=== PATIENT | male | born 1955 | race Caucasian/White ===

== ENCOUNTER 2017-09-01 17:03 | Inpatient (IN) | payer MEDICAID ==
[~2017-09-01] VITALS: Ht 170.2 cm; Wt 76.2 kg
--- NOTE | 2017-09-01 17:05 | NUR ---
pt ambulatory to er bed 10. c/o being dizzy and nauseated since yesterday. pt is diabetic. pt also c/o lt side neck pain w/ numbness to lue. denies weakness. gowned and placed on monitor. vss. awaiting md jamil.
--- NOTE | 2017-09-01 17:20 | NUR ---
norris germain at bedside for eval.
[2017-09-01] MEDS ORDERED: IV NS 0.9% 1,000 ML BAG IV ONE (17:30)
[2017-09-01] MEDS ORDERED: ONDANSETRON HCL/PF 4 MG/2 ML VIAL IVP ONE (17:30)
--- NOTE | 2017-09-01 17:46 | NUR ---
Note [facility] in EDM - 09/01/17 at 1816 by NÉSTOR pt ambulatory to er bed 10. c/o being dizzy and nauseated since yesterday. pt is diabetic. pt also c/o lt side neck pain w/ numbness to lue. denies weakness. gowned and placed on monitor. vss. awaiting md jamil.
[2017-09-01 17:47] LABS: BASOPHILS # (AUTO) 0.3 /CMM (0.0-0.2); EOSINOPHILS # (AUTO) 0.1 /CMM (0.0-0.7); EOSINOPHILS % (AUTO) 1.1 % (0.0-6.0); HEMATOCRIT 46 % (39-51); LYMPHOCYTES # (AUTO) 2.6 /CMM (0.8-4.8); MEAN CORPUSCULAR HEMOGLOBIN 34 PG (26.0-33.0); MEAN CORPUSCULAR HGB CONC 35 g/dl (31.0-36.0); MEAN CORPUSCULAR VOLUME 99 fL (80-96); MONOCYTES # (AUTO) 0.7 /CMM (0.1-1.30); MONOCYTES % (AUTO) 5.2 % (2.0-12.0); NEUTROPHILS # (AUTO) 8.9 /CMM (1.8-8.9); NEUTROPHILS % (AUTO) 70.7 % (43.0-81.0); PLATELET COUNT (AUTO) 255 /CMM (150-450); RDW COEFFICIENT OF VARIATION 12.6 (11.5-15.0); RED BLOOD CELL COUNT(AUTO) 4.65 MIL/uL (4.5-6.0); WHITE BLOOD COUNT (AUTO) 12.6 K/uL (4.3-11.0)
--- NOTE | 2017-09-01 17:55 | NUR ---
CALLED RN SUPP FOR BED
--- NOTE | 2017-09-01 18:00 | NUR ---
pt to radiology for head ct scan via [facility].
[2017-09-01 18:08] LABS: INR 0.94 (0.87-1.13); PROTHROMBIN TIME 9.8 SECS (9.5-12.7)
[2017-09-01] MEDS ORDERED: ONDANSETRON HCL/PF 4 MG/2 ML VIAL ONE (18:17)
[2017-09-01 18:36] LABS: ALBUMIN 3.7 g/dL (3.4-5.0); BILIRUBIN,DIRECT 0.1 mg/dL (0.0-0.2); BILIRUBIN,TOTAL 0.3 mg/dL (0.2-1.0); CALCIUM, SERUM 9.6 mg/dL (8.5-10.1); CREATININE 0.8 mg/dL (0.6-1.3); POTASSIUM 4.2 mmol/L (3.5-5.1)
[2017-09-01] MEDS ORDERED: HYDR12.5 PO (18:36)
[2017-09-01] MEDS ORDERED: METF10002 PO (18:36)
[2017-09-01] MEDS ORDERED: IBUPROFEN 600 MG TABLET PO ONE ×2 (18:39→19:00)
[2017-09-01] MEDS ORDERED: HYDROCHLOROTHIAZIDE 25 MG TABLET ONE (18:39)
[2017-09-01] MEDS ORDERED: GLIM4TAB2 PO (18:41)
[2017-09-01] MEDS ORDERED: NPH,100V SQ (18:41)
[2017-09-01] MEDS ORDERED: HYDROCHLOROTHIAZIDE 25 MG TABLET PO ONE (19:00)
[2017-09-01 20:00] VITALS: BP 140/73
[2017-09-01] MEDS ORDERED: LORAZEPAM INJ 2 MG/ML VIAL IV ONE (20:00)
[2017-09-01 20:04] LABS: APPEARANCE,URINE Clear (CLEAR); BILIRUBIN,URINE Negative (NEGATIVE); BLOOD, URINE Trace-lysed Ery/uL (NEGATIVE); COLOR,URINE Yellow (YELLOW); KETONES,URINE Negative (NEGATIVE); LEUKOCYTE ESTERASE ,URINE Negative (NEGATIVE); NITRITE, URINE Negative (NEGATIVE); PH,URINE 6.5 (5.0-8.0); PROTEIN,URINE Negative (NEGATIVE); UGLUCOSE 250 MG/DL mg/dL (NEGATIVE); UROBILINOGEN,URINE 0.2 EU/dL (0.2)
[2017-09-01] MEDS ORDERED: LORAZEPAM INJ 2 MG/ML VIAL ONE (20:10)
--- NOTE | 2017-09-01 20:28 | NUR ---
report given to garfield. pt awaiting transfer to floor.
[2017-09-01 20:30] LABS: BACTERIA,URINE Rare /HPF (None Seen); WBC,URINE 0-2 /HPF (0-3)
[2017-09-01 20:31] LABS: RBC,URINE 0-2 /HPF (0-2); SQUAMOUS EPITHELIAL CELL,UR Rare /HPF (None Seen)
[2017-09-01] MEDS ORDERED: LORAZEPAM INJ 2 MG/ML VIAL IVP PRN (21:30)
[2017-09-01] MEDS ORDERED: ACETAMINOPHEN 650 MG/SUPP.RECT RC PRN (21:30)
[2017-09-01] MEDS ORDERED: DEXTROSE 50%-WATER 50 ML DISP.SYRIN IV PRN (21:30)
[2017-09-01 22:00] VITALS: BP 155/72
[2017-09-01] MEDS ORDERED: SIMVASTATIN 20 MG TABLET PO SCH (22:00)
[2017-09-01] MEDS: BLOOD SUGAR DIAGNOSTIC 1 EACH STRIP IN SCH (22:50)
[2017-09-01] MEDS ORDERED: SIMVASTATIN 20 MG TABLET ONE (22:56)
[2017-09-02] VITALS: BP 160/69
[2017-09-02] MEDS: IV NS 0.9% 1,000 ML IV PRN ×2 (00:10→23:24)
[2017-09-02 01:30] VITALS: BP 133/67
[2017-09-02 04:00] VITALS: BP 145/77
--- NOTE | 2017-09-02 04:55 | NUR ---
RN NOTES 20:45 Patient arrived in the unit in no apparent distress. Patient is accompanied by family. Patient is alert and oriented x4, verbally responsive in Uzbek and able to make needs known. Patient's sister served as the jumpbasting machine operator. Skin is warm and dry to touch, no SOB noted. Admission interview done, patient is cooperative. Informed Camryn Glover of the admission and ordered diet for the patient, order noted and carried out. Accucheck done, no s/s of hypo/hyperglycemia. Skin assessment done. no skin breakdown noted. No edema noted. Seen and examined by Dr Cowan no new orders given. All needs attended.due meds given as ordered. Will continue to monitor.
[2017-09-02] MEDS: BLOOD SUGAR DIAGNOSTIC 1 EACH STRIP IN SCH ×4 (06:32→22:17)
[2017-09-02 06:50] VITALS: BP 146/75
[2017-09-02 07:28] LABS: BASOPHILS % (AUTO) 0.3 % (0.0-2.0); EOSINOPHILS # (AUTO) 0.2 /CMM (0.0-0.7); EOSINOPHILS % (AUTO) 2.1 % (0.0-6.0); HEMATOCRIT 43 % (39-51); LYMPHOCYTES # (AUTO) 2.8 /CMM (0.8-4.8); LYMPHOCYTES % (AUTO) 32.3 % (20.0-44.0); MEAN CORPUSCULAR HEMOGLOBIN 35 PG (26.0-33.0); MEAN CORPUSCULAR HGB CONC 35 g/dl (31.0-36.0); MEAN CORPUSCULAR VOLUME 100 fL (80-96); MONOCYTES # (AUTO) 0.5 /CMM (0.1-1.30); MONOCYTES % (AUTO) 6.1 % (2.0-12.0); NEUTROPHILS # (AUTO) 5.2 /CMM (1.8-8.9); NEUTROPHILS % (AUTO) 59.2 % (43.0-81.0); PLATELET COUNT (AUTO) 242 /CMM (150-450); RDW COEFFICIENT OF VARIATION 13.2 (11.5-15.0); WHITE BLOOD COUNT (AUTO) 8.8 K/uL (4.3-11.0)
[2017-09-02 07:49] LABS: ALANINE AMINOTRANSFERASE 27 U/L (12-78); ALBUMIN 3.3 g/dL (3.4-5.0); ALCOHOL, BLOOD < 3 mg/dL (0-0); ALKALINE PHOSPHATASE 99 U/L (46-116); ASPARTATE AMINOTRANSFERASE 18 U/L (15-37); BILIRUBIN,DIRECT 0.1 mg/dL (0.0-0.2); BILIRUBIN,TOTAL 0.6 mg/dL (0.2-1.0); CALCIUM, SERUM 9.1 mg/dL (8.5-10.1); CARBON DIOXIDE 29 mmol/L (21-32); CHLORIDE 105 mmol/L (98-107); CREATININE 0.8 mg/dL (0.6-1.3); GLUCOSE 173 mg/dL (74-106); MAGNESIUM 1.9 mg/dL (1.8-2.4); PHOSPHORUS 2.9 mg/dL (2.5-4.9); POTASSIUM 3.8 mmol/L (3.5-5.1); SODIUM SERUM 140 mmol/L (136-145); TOTAL PROTEIN, SERUM 6.7 g/dL (6.4-8.2); UREA NITROGEN, BLOOD 11 mg/dL (7-18)
[2017-09-02 07:51] LABS: INR 0.97 (0.87-1.13); PROTHROMBIN TIME 10.1 SECS (9.5-12.7)
[2017-09-02 07:54] LABS: CHOLESTEROL 186 mg/dL (<200); HDL CHOLESTEROL 36 mg/dL (40-60); LDL 127 mg/dL (0-99); TRIGLYCERIDES 120 mg/dL (30-150)
--- NOTE | 2017-09-02 08:00 | NUR ---
CARE TECH NOTES PATIENT IN BED RESTING NO SOB OR ACUTE DISTRESS NOTED. PERIPHERAL IV INTACT PATENT. AT BEDSIDE. PATIENT NIGERIEN SPEAKING. BED IN LOW LOCKED POSITION. CALL LIGHT WITHIN REACH WILL CONTINUE TO MONITOR.
[2017-09-02] MEDS ORDERED: ASPIRIN 81 MG TAB.CHEW PO SCH (09:00)
[2017-09-02] MEDS ORDERED: INSULIN NPH, HUMAN ISOPHANE 100 UNIT/ML VIAL SQ SCH (09:00)
[2017-09-02] MEDS: METFORMIN 500 MG TABLET PO SCH ×2 (09:59→17:12)
[2017-09-02] MEDS: GLIMEPIRIDE 4 MG TABLET PO SCH ×2 (10:00→17:13)
[2017-09-02] MEDS: PANTOPRAZOLE 40 MG TABLET.DR PO SCH (10:00)
[2017-09-02] MEDS: VALSARTAN 80 MG TABLET PO SCH (10:00)
[2017-09-02] MEDS: HYDROCHLOROTHIAZIDE 25 MG TABLET PO SCH (10:03)
[2017-09-02] MEDS: INSULIN REGULAR, HUMAN 100 UNIT/ML 3 ML VIAL SQ PRN ×2 (12:23→22:21)
--- NOTE | 2017-09-02 14:00 | NUR ---
SQUARE SHEAR OPERATOR NOTES PATIENT SEEN AND EVALUATED BY DR. CISSE ORDERS NOR MRI WITH AND WITHOUT CONTRAST AND CT OF THE SPINE, ORDERS NOTED AND CARRIED OUT.
[2017-09-02 16:00] VITALS: BP 130/70
[2017-09-02] MEDS ORDERED: GADOVERSETAMIDE 5 MMOL/10 ML VIAL IJ ONE (18:25)
[2017-09-02] MEDS ORDERED: GADOVERSETAMIDE 2.5 MMOL/5 ML VIAL IJ ONE (18:25)
--- NOTE | 2017-09-02 18:36 | NUR ---
TANK REFINISHER NOTES PATIENT IN BED RESTING NO SOB OR ACUTE DISTRESS NOTED. PERIPHERAL IV INTACT PATENT ON RIGHT HAND. PATIENT EDUCATIONS PROVIDED ON CVA, PREVENTATIVE MEASURES, SIGNS AND SYMPTOMS, VERBALIZED UNDERSTANDING FAMILY AND PATIENT. ALL DUE MEDICATIONS ADMINISTERED. ALL NEEDS MET. WILL ENDORSE TO PM SHIFT LEEANNA.
--- NOTE | 2017-09-02 19:35 | NUR ---
TELE/ACCOUNT DIRECTOR; RECEIVED PT IN BED AWAKE, ALERT AND ORIENTED X 4. DENIES ANY PAIN. NO DIZZINESS NOR BLURRY VISION LT EYE. PT SAID HE CAN SEE FINE. SPEECH IS CLEAR. BREATHING NON LABORED. PT ABLE TO MOVE ALL EXTREMITIES. ON TELEMETRY. BED ON LOWER POSITION AND LOCKED FOR SAFETY. SIDE RAILS ARE UP FOR SAFETY. PT'S AT THE BEDSIDE VISITED. PT WAS SAYING HE IS MUCH BETTER. IVF ON PROGRESS. WILL CONTINUE TO MONITOR. CALL LIGHT WITHIN REACH.
[2017-09-02 20:00] VITALS: BP 138/70
--- NOTE | 2017-09-02 21:30 | NUR ---
TELE/GUN NUMBERER; DR. Joann KUMAR CALLED AND HE RELAYED THE RESULT OF THE MRI OF THE BRAIN. I INFORMED THE CHARGE NURSE OF THE MRI RESULT . SHE SAID TO CALL DR. HARESH GRECO.
[2017-09-02] MEDS: ATORVASTATIN 40 MG TABLET PO SCH (21:34)
--- NOTE | 2017-09-02 22:00 | NUR ---
TELE/CUSTOMER ENGINEERING SPECIALIST; BS 173 COVERED WITH REGULAR INSULIN 3 UNITS SQ. WILL CONTINUE TO MONITOR.
--- NOTE | 2017-09-02 22:25 | NUR ---
TELE/APPLICATIONS PROGRAMMER; I PLACED A CALL TO DR. HARESH LEE I NOTIFIED HER THAT DR. Joann KUMAR CALLED FOR THE RESULT OF THE MRI OF THE BRAIN. I READ TO DR. HARESH GRANT THE MRI OF THE BRAIN RESULTS. NO NEW ODER.
[2017-09-03] VITALS: BP 129/65
[2017-09-03 04:00] VITALS: BP 136/76
[2017-09-03] MEDS: BLOOD SUGAR DIAGNOSTIC 1 EACH STRIP IN SCH ×4 (05:37→22:15)
--- NOTE | 2017-09-03 06:00 | NUR ---
TELE/COMMERCIAL PHOTOGRAPHER; BS 109 NO COVERAGE.
--- NOTE | 2017-09-03 06:30 | NUR ---
TELE/CAR HOP; PT SLEPT AT GOOD INTERVALS. PT ON SR 65. IVF ON PROGRESS. MADE NO COMPLAINT. WILL CONTINUE TO MONITOR. CALL LIGHT WITHIN REACH. WILL ENDORSE TO THE DAY SHIFT NURSE.
--- NOTE | 2017-09-03 06:45 | NUR ---
PLACED ON DVT PUMP TO BOTH LOWER LEGS.
[2017-09-03 07:00] VITALS: BP 140/80
--- NOTE | 2017-09-03 07:12 | NUR ---
RN OPEN NOTES RECEIVED REPORT FROM RESIDENTIAL DIRECTOR NURSE. PATIENT IS IN BED. PATIENT IS ALERT AND ORIENTED TO NAME, PLACE AND TIME. NO SIGNS AND SYMPTOMS OF DISTRESS. WILL CONTINUE TO MONITOR AND ASSESS PATIENT THROUGH OUT MY SHIFT
[2017-09-03 08:00] VITALS: BP 140/80
--- NOTE | 2017-09-03 08:30 | NUR ---
DR MACLOLM AT BEDSIDE
[2017-09-03] MEDS: METFORMIN 500 MG TABLET PO SCH ×2 (08:48→17:20)
[2017-09-03] MEDS: VALSARTAN 80 MG TABLET PO SCH (08:48)
[2017-09-03] MEDS: PANTOPRAZOLE 40 MG TABLET.DR PO SCH (08:51)
[2017-09-03] MEDS: HYDROCHLOROTHIAZIDE 25 MG TABLET PO SCH (08:51)
[2017-09-03] MEDS: GLIMEPIRIDE 4 MG TABLET PO SCH ×2 (08:51→17:20)
[2017-09-03] MEDS: ASPIRIN EC 325 MG TABLET.DR PO SCH (08:59)
[2017-09-03] MEDS: ACETAMINOPHEN 325 MG TABLET PO PRN ×2 (09:42→17:23)
[2017-09-03 11:05] LABS: BASOPHILS % (AUTO) 0.1 % (0.0-2.0); EOSINOPHILS # (AUTO) 0.1 /CMM (0.0-0.7); EOSINOPHILS % (AUTO) 1.3 % (0.0-6.0); HEMATOCRIT 44 % (39-51); HEMOGLOBIN 15.2 g/dL (13.5-17.5); LYMPHOCYTES % (AUTO) 27.4 % (20.0-44.0); MEAN CORPUSCULAR HEMOGLOBIN 35 PG (26.0-33.0); MEAN CORPUSCULAR HGB CONC 35 g/dl (31.0-36.0); MEAN CORPUSCULAR VOLUME 100 fL (80-96); MONOCYTES # (AUTO) 0.6 /CMM (0.1-1.30); MONOCYTES % (AUTO) 5.6 % (2.0-12.0); NEUTROPHILS # (AUTO) 7.1 /CMM (1.8-8.9); NEUTROPHILS % (AUTO) 65.6 % (43.0-81.0); PLATELET COUNT (AUTO) 238 /CMM (150-450); RDW COEFFICIENT OF VARIATION 13.7 (11.5-15.0); RED BLOOD CELL COUNT(AUTO) 4.36 MIL/uL (4.5-6.0); WHITE BLOOD COUNT (AUTO) 10.8 K/uL (4.3-11.0)
[2017-09-03] MEDS: LEVETIRACETAM (250 MG) 250 MG TABLET PO SCH ×2 (11:10→21:16)
[2017-09-03 11:14] LABS: ALBUMIN 3.1 g/dL (3.4-5.0); BILIRUBIN,TOTAL 0.5 mg/dL (0.2-1.0); CALCIUM, SERUM 9.2 mg/dL (8.5-10.1); POTASSIUM 3.8 mmol/L (3.5-5.1); TOTAL PROTEIN, SERUM 6.5 g/dL (6.4-8.2)
[2017-09-03] MEDS: INSULIN REGULAR, HUMAN 100 UNIT/ML 3 ML VIAL SQ PRN ×2 (11:52→17:27)
[2017-09-03] MEDS: IV NS 0.9% 1,000 ML IV PRN (13:59)
[2017-09-03 16:00] VITALS: BP 116/70
--- NOTE | 2017-09-03 16:45 | NUR ---
US TECH AT BEDSIDE FOR CAROTID DUPLEX IMAGE
--- NOTE | 2017-09-03 18:39 | NUR ---
RN CLOSING NOTES PATIENT IS ALERT AND ORIENTED TO NAME, PLACE AND TIME. NO SIGNS AND SYMPTOMS OF DISTRESS. IV SITE IS INTACT AND PATENT. BED IN LOW POSITION, LOCKED AND TWO SIDE RAILS ARE UP. CALL LIGHT WITHIN REACH FOR SAFETY. ALL NURSING CARE ANTICIPATED AND ATTENDED FOR. PATIENT REMAINED DRY AND CLEAN. WILL ENDORSE TO DOOR TO DOOR SALESPERSON NURSE
--- NOTE | 2017-09-03 19:30 | NUR ---
MS/FUR POLISHER; RECEIVED PT IN BED AWAKE, ALERT AND ORIENTED X 4. PT WITH VISITORS. BREATHING NON LABORED. DENIES ANY PAIN. SPEECH IS CLEAR. DENIES DIZZINESS NO HEADACHE , NO BLURRY VISION ON THE LEFT EYE, NO PAIN ON THE LT ARM AND NO NUMBNESS. PT ABLE TO MOVE ALL EXTREMITIES. BED ON LOWER POSITION AND LOCKED FOR SAFETY. SIDE RAILS UPPER PART OF BED X2 ARE UP FOR SAFETY. PT REMINDED TO CALL FOR HELP. CONTINUE TO MONITOR. CALL LIGHT WITHIN REACH.
[2017-09-03 20:00] VITALS: BP 137/77
--- NOTE | 2017-09-03 20:00 | NUR ---
MS/ARCHIVES SPECIALIST; NEW IV LINE STARTED ON LFA # 20 ANGIO CATH. PREVIOUS ON LA IS PAINFUL AND BIT BLEEDING. IVF WILL RESUMED.
--- NOTE | 2017-09-03 20:00 | NUR ---
MS/FIRE CAPTAIN MARINE; IV SITE ON THE LT ARM PT SAID IT IS PAINFUL . IVF OFF. NEW IV SITE STARTED ON LFA # 20 ANGIO CATH AND IVF RESUMED.
[2017-09-03] MEDS ORDERED: LEVETIRACETAM (250 MG) 250 MG TABLET PO SCH (21:00)
[2017-09-03] MEDS: ATORVASTATIN 40 MG TABLET PO SCH (21:16)
[2017-09-03] MEDS ORDERED: INSULIN NPH, HUMAN ISOPHANE 100 UNIT/ML VIAL SQ SCH (22:00)
--- NOTE | 2017-09-03 22:00 | NUR ---
MS/SALES PRODUCER; BS 113 NO SLIDING SCALE GIVEN. PT ON NOVOLIN 15 UNITS SQ ORDERED AND CHARGE NURSE JESUS CHENG MAY GIVE AND ALSO GIVE PT SNACKS. WILL CONTINUE TO MONITOR. IVF ON PROGRESS SNACKS GIVEN.
--- NOTE | 2017-09-04 | NUR ---
MS/POWDER AND PRIMER CANNING LEADER; SLEEPING AT THIS TIME. BREATHING NON LABORED.
--- NOTE | 2017-09-04 03:00 | NUR ---
MS/HEADING REPAIRER; RE CHECKED BS 206. MADE NO C/O. ASSISTED TO THE BATHROOM VOIDED ONLY. BACK TO BED WITH ASSIST. IN BED COMFORTABLY. IVF RESUMED. CHARGE NURSE MADE AWARE OF THE BS.
[2017-09-04] MEDS: IV NS 0.9% 1,000 ML IV PRN (05:06)
--- NOTE | 2017-09-04 06:10 | NUR ---
MS/DIRECT MAIL COORDINATOR; BS 97 NO COVERAGE GIVEN.
[2017-09-04] MEDS: BLOOD SUGAR DIAGNOSTIC 1 EACH STRIP IN SCH ×2 (06:14→11:58)
[2017-09-04] MEDS: ACETAMINOPHEN 325 MG TABLET PO PRN (06:20)
--- NOTE | 2017-09-04 06:20 | NUR ---
MS/ALUMINUM FABRICATION SUPERVISOR; C/O HEADACHE WITH PAIN LEVEL OF 4 OUT OF10. TYLENOL 650 MG PO Q6 PRN GIVEN.
[2017-09-04 06:33] LABS: BASOPHILS % (AUTO) 0.3 % (0.0-2.0); EOSINOPHILS # (AUTO) 0.2 /CMM (0.0-0.7); EOSINOPHILS % (AUTO) 2.5 % (0.0-6.0); HEMATOCRIT 42 % (39-51); HEMOGLOBIN 14.9 g/dL (13.5-17.5); LYMPHOCYTES % (AUTO) 31.5 % (20.0-44.0); MEAN CORPUSCULAR HEMOGLOBIN 35 PG (26.0-33.0); MEAN CORPUSCULAR HGB CONC 35 g/dl (31.0-36.0); MEAN CORPUSCULAR VOLUME 99 fL (80-96); MONOCYTES # (AUTO) 0.6 /CMM (0.1-1.30); MONOCYTES % (AUTO) 6.2 % (2.0-12.0); NEUTROPHILS # (AUTO) 5.6 /CMM (1.8-8.9); NEUTROPHILS % (AUTO) 59.5 % (43.0-81.0); PLATELET COUNT (AUTO) 230 /CMM (150-450); RDW COEFFICIENT OF VARIATION 13.1 (11.5-15.0); RED BLOOD CELL COUNT(AUTO) 4.26 MIL/uL (4.5-6.0); WHITE BLOOD COUNT (AUTO) 9.4 K/uL (4.3-11.0)
[2017-09-04 06:41] LABS: CALCIUM, SERUM 9.3 mg/dL (8.5-10.1); CREATININE 0.9 mg/dL (0.6-1.3); POTASSIUM 3.8 mmol/L (3.5-5.1)
--- NOTE | 2017-09-04 06:43 | NUR ---
MS/AGRICULTURE LABORER; SLEPT AT GOOD INTERVALS. NO SEIZURE 'S ACTIVITIES NOTED. NO DIZZINESS NO PAIN LT ARM. NO BLURRY VISION. IVF ON PROGRESS. ASSISTED TO THE BATHROOM AND PT VOIDED BUT NO BM. WILL CONTINUE TO MONITOR. CALL LIGHT WITHIN REACH. WILL ENDORSE TO THE DAY SHIFT NURSE.
--- NOTE | 2017-09-04 07:20 | NUR ---
RN OPEN NOTES RECEIVED REPORT FROM ELECTRIC TRUCKER NURSE. PATIENT IS IN BED, AWAKE, ALERT AND ORIENTED TO NAME, PLACE AND TIME. NO SIGNS AND SYMPTOMS OF DISTRESS. DENIED PAIN. WILL CONTINUE TO MONITOR AND ASSES PATIENT THROUGH OUT MY SHIFT
[2017-09-04 08:00] VITALS: BP 124/70
[2017-09-04] MEDS: METFORMIN 500 MG TABLET PO SCH (08:25)
[2017-09-04] MEDS: VALSARTAN 80 MG TABLET PO SCH (08:25)
[2017-09-04] MEDS: ASPIRIN EC 325 MG TABLET.DR PO SCH (08:25)
[2017-09-04] MEDS: GLIMEPIRIDE 4 MG TABLET PO SCH (08:25)
[2017-09-04] MEDS: LEVETIRACETAM (250 MG) 250 MG TABLET PO SCH (08:25)
[2017-09-04 08:26] VITALS: BP 124/70
[2017-09-04] MEDS: HYDROCHLOROTHIAZIDE 25 MG TABLET PO SCH (08:26)
[2017-09-04] MEDS: PANTOPRAZOLE 40 MG TABLET.DR PO SCH (08:29)
[2017-09-04] MEDS ORDERED: NICOTINE PATCH (7MG) 7 MG PATCH.TD24 TD SCH (09:00)
[2017-09-04] MEDS ORDERED: LEVE250T2 PO (11:47)
[2017-09-04] MEDS ORDERED: ATOR40TA PO (11:47)
[2017-09-04] MEDS ORDERED: ASPI-605 PO (11:47)
[2017-09-04] MEDS: INSULIN REGULAR, HUMAN 100 UNIT/ML 3 ML VIAL SQ PRN (12:03)
[2017-09-04] MEDS ORDERED: PNEUMOCOCCAL 23-VAL P-SAC VAC 0.5 ML VIAL SQ ONE (13:30)
--- NOTE | 2017-09-04 15:00 | NUR ---
MEDICINE TECH NOTES DISCHARGE ORDER RECEIVED AND CARRIED OUT. PER DR MALCOLM: HE SPOKE WITH DR CISSE AND SHE CLEARED PATIENT TO GO HOME WITH STATIN, ASA, AND KEPPRA. PATIENT IS LEAVING IN A STABLE CONDITION. NO SIGNS AND SYMPTOMS OF DISTRESS. DENIED PAIN. ALL DISCHARGE INSTRUCTION GAVE TO PATIENT, AND DAUGHTER. ALL VERBALIZED UNDERSTANDING. ALL PERSONAL BELONGING WITH PATIENT AT TIME OF DISCHARGE. NEW PRESCRIPTION EXPLAINED TO PATIENT AND FAMILY; PATIENT HAS THE PRESCRIPTION. PATIENT ADVISED TO FOLLOW UP WITH PRIMARY PHYSICIAN WITHIN 7-10 DAYS POST DISCHARGE. BELONGING LIST FORMS AND DISCHARGE FORM SIGNED BY PATIENT AND PLACED IN THE CHART. SKIN IS INTACT. IV SITE REMOVED. ID BAND REMOVED. PATIENT WAS DISCHARGE HOME, FAMILY TRANSFERRED PATIENT HOME VIA A PRIVATE CAR. PATIENT ESCORTED TO MAIN LOBBY WITH AN RN.
== END 2017-09-04 15:00 | disposition home or self-care (01) | DRG 45 ==
LOC: ER 17:08 → TELE 20:01 → MED 09-03 08:51
PROVIDERS: ADMIT Internal Medicine; ATTEND Internal Medicine
DX: I63.9 Cerebral infarction, unspecified (principal); G93.40 Encephalopathy, unspecified; R56.9 Unspecified convulsions; D72.829 Elevated white blood cell count, unspecified; E11.9 Type 2 diabetes mellitus without complications; I10 Essential (primary) hypertension; R55 Syncope and collapse; E78.5 Hyperlipidemia, unspecified; V89.2XXA Person injured in unspecified motor-vehicle accident, traffic, initial encounter; Y93.9 Activity, unspecified; Y92.410 Unspecified street and highway as the place of occurrence of the external cause; Z79.4 Long term (current) use of insulin; G43.109 Migraine with aura, not intractable, without status migrainosus
CPT/HCPCS: 36415; 70450-TC; 70553-TC; 71010-TC; 72125-TC; 80048-TC; 80053-TC; 80061-TC; 80076-TC; 80305; 81000-TC; 82962-TC; 83735-TC; 84100-TC; 84484-TC; 85025-TC; 85730-TC; 87081-TC; 90732; 93307-TC; 93880-TC; 95819-TC; A4606; A9579; G0480; J1815; J2060; J2405; J7030; Z7610

== ENCOUNTER 2017-12-14 18:55 | Emergency (ER) | payer MEDICAID ==
[~2017-12-14] VITALS: Ht 165.1 cm; Wt 90.7 kg
[~2017-12-14 18:55] MED LIST: ASPI-605 PO; ATOR40TA PO; GLIM4TAB2 PO; HYDR12.5 PO; LEVE250T2 PO; METF10002 PO; NPH,100V SQ
[2017-12-14 19:57] VITALS: BP 148/76
[2017-12-14] MEDS ORDERED: IBUPROFEN 600 MG TABLET PO ONE ×2 (20:30→20:38)
== END 2017-12-14 20:58 | disposition home or self-care (01) ==
LOC: ER 18:56
DX: S61.211A Laceration without foreign body of left index finger without damage to nail, initial encounter (principal); E11.9 Type 2 diabetes mellitus without complications; I10 Essential (primary) hypertension; Z79.82 Long term (current) use of aspirin; W25.XXXA Contact with sharp glass, initial encounter; Y93.G1 Activity, food preparation and clean up; Y92.89 Other specified places as the place of occurrence of the external cause; Y99.8 Other external cause status
CPT/HCPCS: 73140-TC; A4606; A6402; Z7610

== ENCOUNTER 2019-04-17 12:05 | Emergency (ER) | payer MEDICAID ==
[~2019-04-17] VITALS: Ht 165.1 cm; Wt 74.8 kg
[~2019-04-17 12:05] MED LIST changes: +METF-442 PO; -METF10002 PO
--- NOTE | 2019-04-17 12:10 | NUR ---
BIB family c/o diffuse abdominal pain, diarrhea and headache. Patient a/ox3, breathing even and unlabored no sob noted, kept comfortable. Will continue to monitor.
[2019-04-17 12:29] LABS: BASOPHILS % (AUTO) 0.6 % (0.0-2.0); EOSINOPHILS % (AUTO) 1.8 % (0.0-6.0); HEMATOCRIT 40 % (39-51); HEMOGLOBIN 14.2 g/dL (13.5-17.5); LYMPHOCYTES # (AUTO) 1.9 /CMM (0.8-4.8); LYMPHOCYTES % (AUTO) 24.9 % (20.0-44.0); MEAN CORPUSCULAR HGB CONC 35 g/dl (31.0-36.0); MEAN CORPUSCULAR VOLUME 102 fL (80-96); MONOCYTES # (AUTO) 0.6 /CMM (0.1-1.30); MONOCYTES % (AUTO) 8.1 % (2.0-12.0); NEUTROPHILS % (AUTO) 64.6 % (43.0-81.0); PLATELET COUNT (AUTO) 213 /CMM (150-450); RED BLOOD CELL COUNT(AUTO) 3.93 MIL/uL (4.5-6.0); WHITE BLOOD COUNT (AUTO) 7.7 K/uL (4.3-11.0)
[2019-04-17] MEDS ORDERED: LIDOCAINE VISCOUS 2% UD 15 ML UDC ONE (12:29)
[2019-04-17] MEDS ORDERED: MAG HYDROX/AL HYDROX/SIMETH 30 ML UDC ONE (12:30)
[2019-04-17] MEDS ORDERED: LIDOCAINE VISCOUS 2% UD 15 ML UDC MM ONE (12:30)
[2019-04-17] MEDS ORDERED: MAG HYDROX/AL HYDROX/SIMETH 30 ML UDC PO ONE (12:30)
[2019-04-17 12:37] LABS: CALCIUM, SERUM 8.9 mg/dL (8.5-10.1); CREATININE 0.9 mg/dL (0.6-1.3); POTASSIUM 3.8 mmol/L (3.5-5.1)
[2019-04-17 12:42] LABS: ALBUMIN 3.3 g/dL (3.4-5.0); BILIRUBIN,DIRECT 0.1 mg/dL (0.0-0.2); BILIRUBIN,TOTAL 0.4 mg/dL (0.2-1.0); TOTAL PROTEIN, SERUM 6.7 g/dL (6.4-8.2)
[2019-04-17] MEDS ORDERED: IOHEXOL-300 100 ML VIAL IV ONE (13:30)
[2019-04-17] MEDS ORDERED: IV NS 0.9% 250 ML IV ONE (13:31)
[2019-04-17] MEDS ORDERED: CT SWABBABLE VALVE TRANS SET 1 EA INFUS.SET MC ONE (13:31)
--- NOTE | 2019-04-17 15:00 | NUR ---
PIV removed, rx provided. Patient discharged to home in stable condition. Written and verbal after care instructions given. Patient verbalizes understanding of instruction.
[2019-04-17 15:03] VITALS: BP 137/75
== END 2019-04-17 15:04 | disposition home or self-care (01) ==
LOC: ER 12:06
DX: R19.7 Diarrhea, unspecified (principal); R10.13 Epigastric pain; R79.89 Other specified abnormal findings of blood chemistry; R51 Headache; E11.9 Type 2 diabetes mellitus without complications; Z95.5 Presence of coronary angioplasty implant and graft; Z86.73 Personal history of transient ischemic attack (TIA), and cerebral infarction without residual deficits; Z79.82 Long term (current) use of aspirin
CPT/HCPCS: 36415; 70450; 74177; 80048; 80076; 83690; 85025; 99284; J7050; Q9967

== ENCOUNTER 2020-10-22 17:53 | Emergency (ER) | payer MEDICAID ==
[~2020-10-22] VITALS: Ht 170.2 cm; Wt 74.8 kg
[~2020-10-22 17:53] MED LIST changes: -GLIM4TAB2 PO; +GLIM4TAB37 PO
[2020-10-22 18:12] VITALS: BP 125/77
[2020-10-22] MEDS ORDERED: IBUPROFEN 600 MG TABLET PO ONE (19:00)
== END 2020-10-22 20:26 | disposition home or self-care (01) ==
LOC: ER 17:55
DX: U07.1 COVID-19 (principal); R42 Dizziness and giddiness; I69.934 Monoplegia of upper limb following unspecified cerebrovascular disease affecting left non-dominant side; I10 Essential (primary) hypertension; E11.9 Type 2 diabetes mellitus without complications; Z79.4 Long term (current) use of insulin; Z79.899 Other long term (current) drug therapy
CPT/HCPCS: 87426; 99283; C9803

== ENCOUNTER 2023-01-05 09:22 | Emergency (ER) | payer MEDICAID, OTHER ==
[~2023-01-05] VITALS: Ht 167.6 cm; Wt 74.8 kg
--- NOTE | 2023-01-05 09:39 | NUR ---
DR. WARE AT BEDSIDE
--- NOTE | 2023-01-05 09:40 | NUR ---
C/O CONSTIPATION X 4 DAYS. LBM: "THURSDAY AFTERNOON" DENIES ABDOMINAL PAIN
[2023-01-05] MEDS ORDERED: MINERAL OIL 133 ML (PYXIS) 1 EA ENEMA RC ONE ×2 (09:47→10:00)
[2023-01-05] MEDS ORDERED: NA PHOS,M-B/NA PHOS,DI-BA 1 EA ENEMA RC ONE ×2 (10:00→10:30)
--- NOTE | 2023-01-05 10:29 | NUR ---
PATIENT STATES THAT HE FEELS NO CHANGE AFTER MAKING A SMALL BOWEL MOVEMENT AND WANTS THE SECOND ORDERED ENEMA
[2023-01-05] MEDS ORDERED: POLY17PO4 PO ×2 (11:35→12:07)
[2023-01-05] MEDS ORDERED: DOCU-141 PO ×2 (11:35→12:07)
--- NOTE | 2023-01-05 11:58 | NUR ---
Patient discharged to home in stable condition AMBULATING. Written and verbal after care instructions given. Patient verbalizes understanding of instruction.
[2023-01-05 12:07] VITALS: BP 138/78
== END 2023-01-05 12:10 | disposition home or self-care (01) ==
LOC: ER 09:28
DX: K59.00 Constipation, unspecified (principal); I10 Essential (primary) hypertension; E11.9 Type 2 diabetes mellitus without complications; Z86.73 Personal history of transient ischemic attack (TIA), and cerebral infarction without residual deficits; Z79.899 Other long term (current) drug therapy; Z79.82 Long term (current) use of aspirin; Z79.84 Long term (current) use of oral hypoglycemic drugs
CPT/HCPCS: 82962-TC